=== PATIENT | male | born 1970 | race Caucasian/White ===

== ENCOUNTER 2021-04-08 13:39 | Inpatient (IN) | payer BC ==
--- OUTSIDE RECORDS SUMMARY | 2021-04-08 13:42 | XMS REPORT | Continuity of Care Document ---
:1970 Author Organization [facility] t Address [address] [place] [address] Care Team Providers Name Role Phone Unavailable Unavailable Unavailable Problems This patient has no known problems. Allergies, Adverse Reactions, Alerts This patient has no known allergies or adverse reactions. Medications Ordered Filled Start Stop Current Ordering Indication Dosage Frequency Signature Comments Components Source Medication Medication Date Date Medication? Clinician (SIG) Name Name Fluticasone Fluticasone 2019- Yes Jluis [address] [facility] Propionate Propionate 1-20 [place] each Sasha kes - 00:00: [facility]ril [facility] Lisinopril Lisinopril Yes Jluis [address] [facility] Lyrica Lyrica Yes Jluis [address] [facility] [place] [facility] Albuterol Albuterol Yes Jluis [address] [facility] Sulfate HFA Sulfate HFA [place] needed [facility] Singulair Singulair Yes Jluis [address] [facility] [place] in the [facility] Hingham Hingham Yes Jluis [address] [facility] [place] as needed [facility] Omeprazole Omeprazole Yes Jluis TAKE [address] [facility] [place] CAPSULE BY [facility] Dymista Dymista Yes Jluis INHALE [address] [facility] [place] PUFF IN [facility] NOSTRIL l TWICE Outpati DAILY ent Clinics Montelukast Montelukast Yes Jluis TAKE [address] [facility] Sodium Sodium [place] TABLET BY [facility] EVERY l EVENING Outpati ent Clinics Dymista Dymista Yes Jluis [address] [facility] [place] each [facility] Prilosec Prilosec Yes Jluis [address] [facility] [place] [facility] Soma Soma 2019- No Jluis [address] [facility] 03-15 [place] as needed [facility] Immunizations Ordered Filled Immunization Date Status Comments Sourc e Immunization Name Name Aleah Bullard 2019-04-[address] [facility] PNEUMAVAX 23 PNEUMAVAX 23 2018-08-[address] [facility] 00:[facility]00 [facility] Procedures This patient has no known procedures. Encounters Start End Encounter Admission Attending Care Care Encounter Source Date/Time Date/Time Type Type Clinicians Facility Department ID 2021-03-07 2021-03-07 Outpatient [facility] [id number] [facility] 2021-02-28 2021-02-28 [facility] [id number] 2021-02-14 2021-02-14 [id number] 2021-02-05 2021-02-05 [facility] [id number] [facility] 2021-01-31 2021-01-31 [facility] [id number] 2021-01-31 2021-01-31 [facility] [id number] [facility] 2020-12-06 2020-12-06 [facility] [id number] [facility] 2020-10-31 2020-10-31 [facility] [id number] [facility] 2020-10-22 2020-10-22 [facility] [id number] [facility] 2020-10-15 2020-10-15 [facility] [id number] [facility] 2020-10-08 2020-10-08 [facility] [id number] [facility] 2020-10-01 2020-10-01 [facility] [id number] [facility] 2020-09-10 2020-09-10 [facility] [id number] [facility] 2020-09-03 2020-09-03 [facility] [id number] [facility] 2020-08-27 2020-08-27 [facility] [id number] [facility] 2020-08-20 2020-08-20 Out[facility] [id number] [facility] 2020-08-13 2020-08-13 Out[facility] [id number] [facility] 2020-08-06 2020-08-06 [facility] [id number] [facility] 2020-08-01 2020-08-01 [facility] [id number] [facility] 2020-07-23 2020-07-23 Out[facility] [id number] [facility] 2020-07-15 2020-07-15 [facility] [id number] [facility] 2020-07-10 2020-07-10 Out[facility] [id number] [facility] 2020-07-04 2020-07-04 Out[facility] [id number] [facility] 2020-06-25 2020-06-25 [facility] [id number] [facility] 2020-06-18 2020-06-18 Out[facility] [id number] [facility] 2020-06-10 2020-06-10 [facility] [id number] [facility] 2020-06-04 2020-06-04 [facility] [id number] [facility] 2020-05-28 2020-05-28 [facility] [id number] [facility] 2020-05-17 2020-05-17 [facility] [id number] [facility] 2020-05-14 2020-05-14 Out[facility] [id number] [facility] 2020-05-06 2020-05-06 [facility] [id number] [facility] 2020-04-30 2020-04-30 [facility] [id number] [facility] 2020-04-23 2020-04-23 [facility] [id number] [facility] 2020-04-09 2020-04-09 [facility] [id number] [facility] 16:10:00 16:10:00 [place] Authorly s - Drive [facility] Medicine l Medicine Outpati ent Clinics 2020-04-05 2020-04-05 [facility] [id number] [facility] 08[facility]15:00 08:15:00 [place] [email or web address] s - Drive [facility] Medicine Medicine Outpati ent Clinics 2020-04-01 2020-04-01 [facility] [id number] [facility] 09:30:00 09:30:00 [place] Authorly s - Drive [facility] Medicine Outpati ent Clinics 2020-03-29 2020-03-29 [facility] [id number] [facility] 09:00:00 09:00:00 [place] [email or web address] s - Drive [facility] Medicine l Medicine Outpati ent Clinics 2020-03-18 2020-03-18 [facility] [id number] [facility] 09:30:00 09:30:00 [place] [email or web address] s - Drive [facility] Out[facility] Clinics 2020-03-15 2020-03-15 [facility] [id number] 09:45:00 09:45:00 [place] Authorly s - Drive [facility] Medicine l Medicine Outpati ent Clinics 2020-03-04 2020-03-04 [facility] [id number] [facility] 10:00:00 10:00:00 [place] [email or web address] [facility] Medicine l Medicine Outpati ent Clinics 2020-03-01 2020-03-01 [facility] [id number] [facility] 09:00:00 09:00:00 t [email or web address] [facility] Medicine Outpat[facility] ent Clinics 2020-02-19 2020-02-19 [facility] [id number] [facility] 16:00:00 16:00:00 t [email or web address] [facility] Medicine Outpati ent Clinics 2020-02-12 2020-02-12 [facility] [id number] [facility] 16:30:00 16:30:00 t [email or web address] [facility] Medicine Outpati ent Clinics 2020-02-09 2020-02-09 [facility] [id number] [facility] 15[facility]52:00 15:52:00 t [email or web address] [facility] Medicine Outpati ent Clinics 2020-02-09 2020-02-09 [facility] [id number] [facility] 10:30:00 10:30:00 t [email or web address] [facility] Medicine Outpati ent Clinics 2020-02-09 2020-02-09 [facility] [id number] [facility] 10:00:00 10:00:00 t [email or web address] [facility] Medicine Outpati ent Clinics 2020-02-05 2020-02-05 [facility] [id number] [facility] 16:00:00 16:00:00 t [email or web address] [facility] Medicine Medicine Outpati ent Clinics 2020-01-30 2020-01-30 [facility] [id number] [facility] 16:00:00 16:00:00 t [email or web address] [facility] Medicine Outpati ent Clinics 2020-01-22 2020-01-22 [facility] [id number] [facility] 10[facility]40:00 10:40:00 t [email or web address] [facility] Medicine Outpati ent Clinics 2020-01-18 2020-01-18 [facility] [id number] [facility] 11:15:00 11:15:00 [place] [email or web address] [facility] Medicine l Medicine Outpati ent Clinics 2020-01-11 2020-01-11 [facility] [id number] [facility] 10:00:00 10:00:00 [place] [email or web address] [facility] Medicine l Medicine Outpati ent Clinics 2019-12-22 2019-12-22 [facility] [id number] [facility] 08:45:00 08:45:00 [place] [email or web address] [facility] Medicine l Medicine Outpati ent Clinics 2019-12-15 2019-12-15 [facility] [id number] [facility] 08:30:00 08:30:00 [place] [email or web address] [facility] Medicine Outpati ent Clinics 2019-10-26 2019-10-26 [facility] [id number] [facility] 11:00:00 11:00:00 [place] [email or web address] [facility] Medicine Outpati ent Clinics 2019-10-20 2019-10-20 [facility] [id number] [facility] 11:42:00 11:42:00 [place] [email or web address] [facility] Medicine l Medicine Outpati ent Clinics 2019-10-20 2019-10-20 [facility] [id number] [facility] 11:00:00 11:00:00 t [email or web address] [facility] Medicine l Medicine Outpati ent Clinics 2019-10-13 2019-10-13 [facility] [id number] [facility] 11:00:00 11:00:00 [place] [email or web address] [facility] Medicine l Medicine Outpati ent Clinics 2019-10-04 2019-10-04 [facility] [id number] [facility] 10:30:00 10:30:00 [place] [email or web address] [facility] Medicine l Medicine Outpati ent Clinics 2019-09-28 2019-09-28 [facility] [id number] [facility] 10:30:00 10:30:00 [place] [email or web address] [facility] Medicine l Medicine Outpati ent Clinics 2019-09-21 2019-09-21 [facility] [id number] [facility] 10:30:00 10:30:00 [place] Authorly s - [employer] [facility] Family Medicine l Medicine Outpati ent Clinics 2019-09-15 2019-09-15 [facility] [id number] [facility] 10:30:00 10:30:00 [place] Authorly s - Drive [facility] Medicine l Medicine Outpati ent Clinics 2019-09-07 2019-09-07 [facility] [id number] [facility] 10:00:00 10:00:00 [place] [email or web address] [facility] Family Medicine l Medicine Outpati ent Clinics 2019-09-01 2019-09-01 [facility] [id number] [facility] 10:30:00 10:30:00 [place] [email or web address] [facility] Medicine l Medicine Outpati ent Clinics 2019-08-23 2019-08-23 [facility] [id number] [facility] 13:30:00 13:30:00 [place] [email or web address] [facility] Medicine l Medicine Outpati ent Clinics 2019-08-16 2019-08-16 [facility] [id number] [facility] 13:00:00 13:00:00 [place] [email or web address] [facility] Medicine l Medicine Outpati ent Clinics 2019-08-09 2019-08-09 [facility] [id number] [facility] 11:00:00 11:00:00 t [email or web address] [facility] Medicine l Medicine Outpati ent Clinics 2019-08-04 2019-08-04 [facility] [id number] 10:30:00 10:30:00 [place] [email or web address] [facility] Medicine l Medicine Outpati ent Clinics 2019-08-01 2019-08-01 [facility] [id number] [facility] 10:30:00 10:30:00 [place] Authorly s - Drive [facility] Medicine l Medicine Outpati ent Clinics 2019-07-24 2019-07-24 [facility] [id number] [facility] 10:45:00 10:45:00 [place] Author[place] - [employer] [facility] Medicine l Medicine Outpati ent Clinics 2019-07-19 2019-07-19 [facility] [id number] 08:30:00 08:30:[address] [place] [address] [address] [place] [address] - Drive [facility] Medicine l Medicine Outpati ent Clinics 2019-07-11 2019-07-11 [facility] [id number] [facility] 11:30:00 11:30:00 [place] [employer] Luke s - Drive [facility] Medicine l Medicine Outpati ent Clinics 2019-07-07 2019-07-07 [facility] [id number] [facility] 10:45:00 10:45:00 [place] [employer] Luke s - Drive [facility] Medicine l Medicine Outpati ent Clinics 2019-07-03 2019-07-03 [facility] [id number] [facility] 10:30:00 10:30:00 [place] [employer] s - Drive [facility] Medicine l Medicine Outpati ent Clinics 2019-06-27 2019-06-27 [facility] [id number] [facility] 13:30:00 13:30:00 [place] [employer] Luke s - Drive [facility] Medicine l Medicine Outpati ent Clinics 2019-06-20 2019-06-20 [facility] [id number] 15:36:00 15:36:00 [place] vufind s - Drive [facility] Medicine l Medicine Outpati ent Clinics 2019-06-20 2019-06-20 [facility] [id number] [facility] 09:30:00 09:30:00 [place] [email or web address] s - Drive [facility] Medicine l Medicine Outpati ent Clinics 2019-06-16 2019-06-16 [facility] [id number] [facility] 10:00:00 10:00:00 [place] [employer] Luke s - Drive [facility] Medicine l Medicine Outpati ent Clinics 2019-06-05 2019-06-05 [facility] [id number] [facility] 10:30:00 10:30:00 [place] [email or web address] s - Drive [facility] Medicine l Medicine Outpati ent Clinics 2019-05-26 2019-05-26 [facility] [id number] [facility] 10:30:00 10:30:00 [place] vufind s - Drive [facility] Medicine l Medicine Outpati ent Clinics 2019-05-19 2019-05-19 [facility] [id number] [facility] 08:00:00 08:00:00 [place] [email or web address] s - Drive [facility] Medicine l Medicine Outpati ent Clinics 2019-05-12 2019-05-12 [facility] [id number] [facility] 10:30:00 10:30:00 [place] Authorly s - Drive [facility] Medicine l Medicine Outpati ent Clinics 2019-05-05 2019-05-05 [facility] [id number] [facility] 11:00:00 11:00:00 [place] Author[place] s - Drive [facility] Medicine l Medicine Outpati ent Clinics 2019-04-28 2019-04-28 [facility] [id number] [facility] 09:00:00 09:00:00 [place] Author[place] - [employer] [facility] Medicine Medicine Outpati ent Clinics 2019-04-20 2019-04-20 [facility] [id number] [facility] 10:45:00 10:45:00 [place] Author[place] [employer] - [employer] [facility] Medicine l Medicine Outpati ent Clinics 2019-04-18 2019-04-18 [facility] [id number] [facility] 10:30:00 10:30:00 [place] Author[place] [employer] - [employer] [facility] Medicine l Medicine Outpati ent Clinics 2019-04-14 2019-04-14 [facility] [id number] [facility] 11:00:00 11:00:00 [place] Author[place] s - Drive [facility] Medicine l Medicine Outpati ent Clinics 2019-03-24 2019-03-24 [facility] [id number] [facility] 10:30:00 10:30:00 [place] Author[place] s - Drive [facility] Medicine l Medicine Outpati ent Clinics 2019-03-17 2019-03-17 [facility] [id number] [facility] 11:00:00 11:00:00 [place] vufind s - Drive [facility] Medicine l Medicine Outpati ent Clinics 2019-03-10 2019-03-10 [facility] [id number] [facility] 11:00:00 11:00:[address] [place] [address] Luke s - Drive [facility] Family Medicine l Medicine Outpati ent Clinics 2019-03-03 2019-03-03 [facility] [id number] [facility] 09:00:00 09:00:[address] [place] [address] Luke [address] - Drive [facility] Medicine l Medicine Outpati ent Clinics 2019-02-24 2019-02-24 [facility] [id number] [facility] 08:30:00 08:30:[address] [place] [address] Luke [address] - Drive [facility] Medicine l Medicine Outpati ent Clinics 2019-02-21 2019-02-21 [facility] [id number] [facility] 11:00:00 11:00:[address] [place] [address] Luke s - Drive [facility] Medicine l Medicine Outpati ent Clinics 2019-02-17 2019-02-17 [facility] [id number] [facility] 11:00:00 11:00:[address] [place] Luke [address] - Drive [facility] Medicine l Medicine Outpati ent Clinics 2019-02-08 2019-02-08 [facility] [id number] [facility] 11:00:00 11:00:[address] [place] [address] Luke [address] - Drive [facility] Medicine l Medicine Outpati ent Clinics 2019-01-31 2019-01-31 [facility] [id number] [facility] 10:30:00 10:30:[address] [place] [address] Luke [address] - Drive [facility] Medicine l Medicine Outpati ent Clinics 2019-01-27 2019-01-27 [facility] [id number] [facility] 09:00:00 09:00:[address] [place] [address] Luke [address] - Drive [facility] Medicine l Medicine Outpati ent Clinics 2019-01-18 2019-01-18 [facility] [id number] [facility] 11:15:00 11:15:[address] [place] [address] Luke [address] - Drive [facility] Medicine l Medicine Outpati ent Clinics 2019-01-13 2019-01-13 [facility] [id number] [facility] 11:00:00 11:00:[address] [place] [address] Luke [address] - Drive [facility] Medicine l Medicine Outpati ent Clinics 2018-12-13 2018-12-13 [facility] [id number] [facility] 10:30:00 10:30:[address] [place] [address] Luke s - Drive [facility] Family Medicine l Medicine Outpati ent Clinics 2018-12-06 2018-12-06 [facility] [id number] [facility] 10:00:00 10:00:[address] [place] Luke s - Drive [facility] Family Medicine l Medicine Outpati ent Clinics 2018-11-29 2018-11-29 [facility] [id number] [facility] 09:45:00 09:45:[address] Luke s - Drive [facility] Family Medicine l Medicine Outpati ent Clinics 2018-10-31 2018-10-31 [facility] [id number] [facility] 15:31:00 15:31:00 [place] [id number] s - Drive [facility] Family Medicine l Medicine Outpati ent Clinics 2018-10-31 2018-10-31 [facility] [id number] [facility] 09:30:00 09:30:00 [place] [employer] Luke s - Drive [facility] Family Medicine l Medicine Outpati ent Clinics 2018-10-03 2018-10-03 [facility] [id number] [facility] 10:45:00 10:45:00 [place] [employer] Luke s - Drive [facility] Medicine l Medicine Outpati ent Clinics 2018-09-05 2018-09-05 [facility] [id number] [facility] 09:30:00 09:30:00 [place] [employer] Luke s - Drive [facility] Medicine l Medicine Outpati ent Clinics 2018-08-09 2018-08-09 [facility] [id number] [facility] 12:05:00 12:05:00 [place] [employer] Luke s - Drive [facility] Family Medicine l Medicine Outpati ent Clinics 2018-08-08 2018-08-08 [facility] [id number] [facility] 11:30:00 11:30:00 [place] [id number] s - Drive [facility] Medicine l Medicine Outpati ent Clinics 2018-07-11 2018-07-11 [facility] [id number] [facility] 13:00:00 13:00:00 [place] [employer] Luke s - Drive [facility] Out[facility] Clinics 2018-04-26 2018-04-26 [facility] [id number] [facility] 09:45:00 09:45:00 [place] [employer]ufind s - Drive [facility] Medicine Outpati ent Clinics 2018-03-21 2018-03-21 [facility] [id number] [facility] 11:00:00 11:00:00 [place] Author[employer] s - Drive [facility] Medicine Outpati ent Clinics 2018-02-23 2018-02-23 [facility] [id number] [facility] 15:15:00 15:15:00 [place] Author[employer] s - Drive [facility] Medicine Outpati ent Clinics 2018-01-24 2018-01-24 [facility] [id number] [facility] 14:45:00 14:45:00 t [employer] - Drive [facility] Medicine Outpati ent Clinics 2017-12-29 2017-12-29 [facility] [id number] [facility] 14:45:00 14:45:00 [place] Author[employer] s - Drive [facility] Medicine Outpati ent Clinics 2017-11-29 2017-11-29 [facility] [id number] [facility] 14:30:00 14:30:00 t [employer] - Drive [facility] Medicine Outpati ent Clinics Results This patient has no known results.
[2021-04-08] MEDS ORDERED: NA CHLORIDE 0.9% 2,000 ML ONE ×2 (15:10→20:53)
[2021-04-08 15:19] LABS: Absolute Lymphocytes (CBC) 3.2 K/uL (0.7-4.9); Basophils % 0.7 % (0-1.3); Hematocrit 42.9 % (39.6-49.0); MPV 8.7 fL (7.6-11.3); RBC Red Blood Cell Count 4.84 M/uL (4.33-5.43)
[2021-04-08 15:26] LABS: Protime INR 1.01
--- NOTE | 2021-04-08 15:44 | RAD REPORT ---
EXAM DESCRIPTION: RAD - Chest Single View - 04/08/2021 3:36 pm CLINICAL HISTORY: COUGH COMPARISON: None TECHNIQUE: AP portable chest image was obtained 04/08/2021 3:36 pm . FINDINGS: No peripheral mass or consolidation. Minimal prominence of the interstitial pattern is bel ieved to be baseline. No johnathan abnormality seen. Heart and vasculature are normal. No measurable pleur al effusion and no pneumothorax. No acute bony abnormality seen. No acute aortic findings suspected. IMPRESSION: No acute cardiopulmonary process.
[2021-04-08 15:46] LABS: ALT/SGPT 39 U/L (12-78); AST/SGOT 43 U/L (15-37); Albumin 4.2 g/dL (3.4-5.0); Alkaline Phosphatase 112 U/L (45-117); BUN Blood Urea Nitrogen 55 mg/dL (7-18); Bicarbonate 22 mmol/L (21-32); Bilirubin Direct 0.1 mg/dL (0-0.2); Bilirubin Total 0.4 mg/dL (0.2-1.0); Glucose Level 95 mg/dL (74-106); Lipase 208 U/L (73-393); Magnesium 2.5 mg/dL (1.8-2.4); NT PRO-BNP 27 pg/mL (<125); Potassium 3.9 mmol/L (3.5-5.1); Protein, Total 8.3 g/dL (6.4-8.2); Sodium Level 136 mmol/L (136-145); Troponin (Emerg Dept Use Only) < 0.02 ng/mL (0.0-0.045)
--- NOTE | 2021-04-08 17:10 | RAD REPORT ---
EXAM DESCRIPTION: CT - Stone Protocol - 04/08/2021 4:57 pm CLINICAL HISTORY: FLANK PAINhistory of COVID infection 3 weeks earlier COMPARISON: CT ABDOMEN PELVIS WO CONTRAST dated 04/01/2012 TECHNIQUE: Axial 3 mm thick images were obtained without oral or IV contrast. The [id number] span s the entirety of the system including uppermost abdomen and lung bases. All CT scans are performed using dose optimization technique as appropriate and may include automated exposure control or mA/KV adjustment according to patient size. FINDINGS: No acute findings lung parenchyma any each lung base. No pericardial thickening or effusio n. No hydronephrosis is present and no obstructing ureteral calculi. No nonobstructing calculi seen. No suspicious renal masses. Isodense masses and pyelonephritis are not excluded on a stone protocol CT s can. No significant adrenal finding. No urinary bladder suspicious finding. Imaged portions of the liver, spleen and pancreas show no suspicious findings on non-contrast imaging . Small cyst medial lower right lobe unchanged from 2012. Well filled gallbladder shows no wall thick ening or edema. No biliary tree dilatation. No suspicious bowel findings. Appendix is normal. Moderate stool volume fills but does not distend th e colon. Sigmoid diverticulosis present without diverticulitis. No hernia, mass or bulky lymphadenopathy noted. No free air, free fluid or inflammatory stranding. No significant bony abnormality. IMPRESSION: Negative CT stone protocol study. Isodense masses and pyelonephritis are not excluded on stone protocol technique. Remainder the study, as detailed above, shows no acute or emergent finding
--- NOTE | 2021-04-08 17:27 | ER ---
Nurse's Notes [facility] Name: Eldon Carrillo Age: 51 yrs Sex: Male : 1970 Arrival Date: 04/08/2021 Time: 13:42 Bed 28 Private MD: Jeffrey Senior E Diagnosis: Hypotension, unspecified;Acute kidney failure, unspecified;Essential (primary) hypertension-History of;Coronavirus infection, unspecified Presentation: 04/08 14:04 Chief complaint: Patient states: LOW BP, dizzy off/on since Wednesday. BP 78/59 at home. ll1 Taking medications as prescribed. Had covid 3 weeks ago, but feels better overall. Coughs up phlegm still. Coronavirus screen: Vaccine status: Patient reports receiving the 1st dose of the Covid vaccine. Client denies travel out of the [place] in the last 14 days. congestion, cough unrelated to allergies, fatigue, headache, Client presents with at least one sign or symptom that may indicate coronavirus-19. Standard/surgical mask placed on the client. Ebola Screen: Patient denies travel to an Ebola-affected area in the 21 days before illness onset. Initial Sepsis Screen: Does the patient meet any 2 criteria? HR > 90 bpm. No. Patient's initial sepsis screen is negative. Does the patient have a suspected source of infection? No. Patient's initial sepsis screen is negative. Risk Assessment: Do you want to hurt yourself or someone else? Patient reports no desire to harm self or others. Onset of symptoms was April 06, 2021. 14:04 Method Of Arrival: Wheelchair ll1 14:04 Acuity: KASANDRA 2 ll1 Triage Assessment: 15:34 General: Appears in no apparent distress. uncomfortable, Behavior is calm, cooperative. kh1 Pain: Complains of pain in genersalized pain Pain does not radiate. Pain currently is 8 out of 10 on a pain scale. Quality of pain is described as aching, crampy. EENT: No deficits noted. Neuro: No deficits noted. Historical: - Allergies: 14:07 No Known Allergies; ll1 - PMHx: 14:07 Hypertensive disorder; back problems; ll1 - PSHx: 14:07 hernia repair; ll1 - Immunization history:: Client reports receiving the Viral \T\ Viral single-dose vaccine. Flu vaccine is not up to date. - Social history:: Smoking status: Patient denies any tobacco usage or history of. - Family history:: No immediate family members are acutely ill. - Code Status:: Full code. - Hospitalizations: : No recent hospitalization is reported. Screenin:53 Abuse screen: Denies threats or abuse. Nutritional screening: No deficits noted. kh1 Tuberculosis screening: No symptoms or risk factors identified. Fall Risk Gait- Weak (10 pts.). Assessment: 15:53 Neuro: No deficits noted. Cardiovascular: Reports chest pain, lightheadedness, kh1 shortness of breath. Respiratory: Reports shortness of breath. GI: No deficits noted. : No deficits noted. 16:08 Reassessment: Pt daughter Meghann called and was updated on patient status. . kg 17:00 Reassessment: Patient appears in no apparent distress at this time. No changes from [facility] previously documented assessment. Patient and/or family updated on plan of care and expected duration. Pain level reassessed. Patient is alert, oriented x 3, equal unlabored respirations, skin warm/dry/pink. 18:24 Reassessment: Patient appears in no apparent distress at this time. No changes from [facility] previously documented assessment. Patient and/or family updated on plan of care and expected duration. Pain level reassessed. Patient states feeling better. Vital Signs: 14:04 BP 75 / 47; Pulse 123; Resp 17; Temp 97.6; Pulse Ox 98% ; Weight 107.95 kg; Height 5 ll1 ft. 11 in. (180.34 cm); Pain 8/10; 15:00 BP 74 / 54; Pulse 106; Resp 18; Temp 97.6; Pulse Ox 96% ; kh1 17:00 BP 98 / 59; Pulse 100; Resp 15; Temp 97.9; Pulse Ox 100% on R/A; kh1 18:28 BP 128 / 89; Pulse 100; Resp 16; Pulse Ox 100% on R/A; kh1 14:04 Body Mass Index 33.19 (107.95 kg, 180.34 cm) ll1 Vitals: 15:53 Cardiac Rhythm Assessment Sinus tach. kh1 ED Course: 13:42 Patient arrived in ED. am2 13:42 Jeffrey Senior MD is Private Physician. am2 14:04 Arm band placed on. ll1 14:06 Triage completed. ll1 14:18 Scarlett Valle is Primary Nurse. kh1 14:44 Shaq Winn MD is Attending Physician. evon 15:12 Lactate Sent. kh1 15:12 Blood Culture Adult (2) Sent. kh1 15:13 Lipase Sent. kh1 15:13 XRAY Chest (1 view) Sent. kh1 15:13 Basic Metabolic Panel Sent. kh1 15:13 CBC with Diff Sent. kh1 15:14 LFT's Sent. kh1 15:14 Magnesium Sent. kh1 15:14 NT PRO-BNP Sent. kh1 15:14 PT-INR Sent. kh1 15:14 Troponin (emerg Dept Use Only) Sent. kh1 15:36 XRAY Chest (1 view) In Process Unspecified. EDMS 15:53 Patient has correct armband on for positive identification. Bed in low position. Call kh1 light in reach. Side rails up X 1. 15:53 No provider procedures requiring assistance completed. Inserted saline lock: 20 gauge kh1 in right antecubital area, using aseptic technique. Blood collected. 15:56 Inserted saline lock: 20 gauge in left antecubital area, using aseptic technique. kh1 15:58 Blood Culture Adult (2) Sent. kh1 16:57 CT Stone Protocol In Process Unspecified. EDMS 17:23 Jay Newman MD is Hospitalizing Provider. [facility] 04/09 19:13 IV discontinued, intact, bleeding controlled, No redness/swelling at site. aj2 Administered Medications: 04/08 14:44 CANCELLED (Duplicate Order): NS 0.9% (20 ml/kg) 20 ml/kg IV at 1 bolus once evon 15:12 Drug: NS 0.9% 1000 ml Route: IV; Rate: 1 bolus; Site: right antecubital; kh1 Outcome: 17:26 Decision to Hospitalize by Provider. [facility] 04/09 19:13 Discharged to home ambulatory. aj2 Condition: stable Discharge instructions given to patient, Instructed on discharge instructions, follow up and referral plans. Demonstrated understanding of instructions, follow-up care. 19:14 Patient left the ED. aj2 Signatures: Dispatcher [employer] EDAZ Shaq Winn MD MD cha Moreno, Amanda am2 Marlene Aguilera RN RN 1 Lesvia Martin RN RN Scarlett Young kh1 Gavino Ennis2 Corrections: (The following items were deleted from the chart) 04/08 16:33 15:58 CORONAVIRUS+ drawn and sent. kh1 EDAZ
--- NOTE | 2021-04-08 17:27 | EDPHYS ---
Physician Documentation [facility] Name: Eldon Carrillo Age: 51 yrs Sex: Male : 1970 Arrival Date: 04/08/2021 Time: 13:42 Bed 28 Private MD: Jeffrey Senior E ED Physician Shaq Winn HPI: 04/08 17:17 This 51 yrs old Male presents to ER via Wheelchair with complaints of Blood evon Pressure Problem - low, Dizziness. 17:17 The patient presents with dizziness, feeling faint, generalized weakness. Onset: The evon symptoms/episode began/occurred 4 day(s) ago. Context: occurred while the patient was. Modifying factors: The symptoms are alleviated by nothing, the symptoms are aggravated by standing up, changing position. Associated signs and symptoms: Pertinent positives:. Severity of symptoms: At their worst the symptoms were moderate in the emergency department the symptoms are unchanged. Patient's baseline: Neuro: alert and fully oriented. The patient has not experienced similar symptoms in the past. Historical: - Allergies: 14:07 No Known Allergies; ll1 - PMHx: 14:07 Hypertensive disorder; back problems; ll1 - PSHx: 14:07 hernia repair; ll1 - Immunization history:: Client reports receiving the Viral \T\ Viral single-dose vaccine. Flu vaccine is not up to date. - Social history:: Smoking status: Patient denies any tobacco usage or history of. - Family history:: No immediate family members are acutely ill. - Code Status:: Full code. - Hospitalizations: : No recent hospitalization is reported. ROS: 17:17 Constitutional: Negative for fever, chills, and weight loss, Eyes: Negative for injury, evon pain, redness, and discharge, ENT: Negative for injury, pain, and discharge, Neck: Negative for injury, pain, and swelling, Cardiovascular: Negative for chest pain, palpitations, and edema, Respiratory: Negative for shortness of breath, cough, wheezing, and pleuritic chest pain, Abdomen/GI: Negative for abdominal pain, nausea, vomiting, diarrhea, and constipation, Back: Negative for injury and pain, : Negative for injury, bleeding, discharge, and swelling, MS/Extremity: Negative for injury and deformity, Skin: Negative for injury, rash, and discoloration, Neuro: Negative for headache, weakness, numbness, tingling, and seizure, Psych: Negative for depression, anxiety, suicide ideation, homicidal ideation, and hallucinations, Allergy/Immunology: Negative for hives, rash, and allergies, Endocrine: Negative for neck swelling, polydipsia, polyuria, polyphagia, and marked weight changes. Exam: 17:17 Constitutional: This is a well developed, well nourished patient who is awake, alert, evon and in no acute distress. Head/Face: Normocephalic, atraumatic. Eyes: Pupils equal round and reactive to light, extra-ocular motions intact. Lids and lashes normal. Conjunctiva and sclera are non-icteric and not injected. Cornea within normal limits. Periorbital areas with no swelling, redness, or edema. ENT: Nares patent. No nasal discharge, no septal abnormalities noted. Tympanic membranes are normal and external auditory canals are clear. Oropharynx with no redness, swelling, or masses, exudates, or evidence of obstruction, uvula midline. Mucous membranes moist. Neck: Trachea midline, no thyromegaly or masses palpated, and no cervical lymphadenopathy. Supple, full range of motion without nuchal rigidity, or vertebral point tenderness. No Meningismus. Chest/axilla: Normal chest wall appearance and motion. Nontender with no deformity. No lesions are appreciated. Cardiovascular: Regular rate and rhythm with a normal S1 and S2. No gallops, murmurs, or rubs. Normal PMI, no JVD. No pulse deficits. Respiratory: Lungs have equal breath sounds bilaterally, clear to auscultation and percussion. No rales, rhonchi or wheezes noted. No increased work of breathing, no retractions or nasal flaring. Abdomen/GI: Soft, non-tender, with normal bowel sounds. No distension or tympany. No guarding or rebound. No evidence of tenderness throughout. Back: No spinal tenderness. No costovertebral tenderness. Full range of motion. Skin: Warm, dry with normal turgor. Normal color with no rashes, no lesions, and no evidence of cellulitis. MS/ Extremity: Pulses equal, no cyanosis. Neurovascular intact. Full, normal range of motion. Neuro: Awake and alert, GCS 15, oriented to person, place, time, and situation. Cranial nerves II-XII grossly intact. Motor strength 5/5 in all extremities. Sensory grossly intact. Cerebellar exam normal. Normal gait. Psych: Awake, alert, with orientation to person, place and time. Behavior, mood, and affect are within normal limits. 17:17 Musculoskeletal/extremity: DVT Exam: No signs of deep vein thrombosis. no pain, no swelling, no tenderness, negative Homans' sign noted on exam, no appreciated bluish discoloration, no erythema, no increased warmth. Vital Signs: 14:04 BP 75 / 47; Pulse 123; Resp 17; Temp 97.6; Pulse Ox 98% ; Weight 107.95 kg; Height 5 ll1 ft. 11 in. (180.34 cm); Pain 8/10; 15:00 BP 74 / 54; Pulse 106; Resp 18; Temp 97.6; Pulse Ox 96% ; kh1 17:00 BP 98 / 59; Pulse 100; Resp 15; Temp 97.9; Pulse Ox 100% on R/A; kh1 18:28 BP 128 / 89; Pulse 100; Resp 16; Pulse Ox 100% on R/A; kh1 14:04 Body Mass Index 33.19 (107.95 kg, 180.34 cm) ll1 MDM: 14:44 Patient medically screened. evon 17:20 Differential diagnosis: generalized weakness, idiopathic dizziness. Data reviewed: [facility] vital signs, nurses notes, lab test result(s), EKG, radiologic studies, plain films. Data interpreted: surveyor geophysical prospecting: rate is 106 beats/min, rhythm is regular, Pulse oximetry: on room air is 96 %. Test interpretation: by ED physician or midlevel provider: ECG, plain radiologic studies. Counseling: I had a detailed discussion with the patient and/or guardian regarding: the historical points, exam findings, and any diagnostic results supporting the discharge/admit diagnosis, lab results, radiology results, the need for further work-up and treatment in the hospital. 04/08 14:37 Order name: Basic Metabolic Panel; Complete Time: 16: [facility] 04/08 14:37 Order name: CBC with Diff; Complete Time: 16: [facility] 04/08 14:37 Order name: LFT's; Complete Time: 16: [facility] 04/08 14:37 Order name: Magnesium; Complete Time: 16: [facility] 04/08 14:37 Order name: NT PRO-BNP; Complete Time: 16: [facility] 04/08 14:37 Order name: PT-INR; Complete Time: 16:06 [facility] 04/08 14:37 Order name: Troponin (emerg Dept Use Only); Complete Time: 16:06 [facility] 04/08 14:37 Order name: Lipase; Complete Time: 16:06 [facility] 04/08 14:37 Order name: Urine Culture [facility] 04/08 14:37 Order name: Blood Culture Adult (2) [facility] 04/08 14:37 Order name: Lactate; Complete Time: 16:06 [facility] 04/08 16:06 Order name: Uric Acid; Complete Time: 17:39 [facility] 04/08 17:34 Order name: SARS-COV-2 RT PCR; Complete Time: 17:39 [facility] 04/08 14:37 Order name: XRAY Chest (1 view); Complete Time: 16:06 [facility] 04/08 16:06 Order name: CT Stone Protocol; Complete Time: 17:39 [facility] 04/08 17:39 Order name: CK; Complete Time: 22:39 [facility] 04/08 21:10 Order name: US; Complete Time: 22:39 [facility] 04/08 23:18 Order name: Urinalysis [facility] 04/08 23:23 Order name: Ur Protein [facility] 04/08 23:45 Order name: Urine Microscopic Only [facility] 04/09 02:43 Order name: CBC with Automated Diff [facility] 04/09 02:58 Order name: Comprehensive Metabolic Panel [facility] 04/09 02:58 Order name: Phosphorus [facility] 04/09 02:58 Order name: Creatine Phosphokinase [facility] 04/09 02:58 Order name: Magnesium [facility] 04/09 12:26 Order name: Basic Metabolic Panel [facility] 04/09 12:28 Order name: CBC with Automated Diff [facility] 04/08 14:37 Order name: EKG; Complete Time: 14:38 [facility] 04/08 14:37 Order name: Cardiac monitoring; Complete Time: 15:13 [facility] 04/08 14:37 Order name: EKG - Nurse/Tech [facility] 04/08 14:37 Order name: IV Saline Lock; Complete Time: 15:13 [facility] 04/08 14:37 Order name: Labs collected and sent; Complete Time: 15:13 [facility] 04/08 14:37 Order name: O2 Per Protocol; Complete Time: 15:13 [facility] 04/08 14:37 Order name: O2 Sat Monitoring; Complete Time: 15:13 [facility] 04/08 14:37 Order name: Urine Dipstick-Ancillary (obtain specimen) [facility] 04/08 14:44 Order name: IV Saline Lock - Large Bore; Complete Time: 15:12 [facility] 04/08 16:06 Order name: Carranza [facility] 04/08 18:49 Order name: CONS Physician Consult EDMS Administered Medications: 14:44 CANCELLED (Duplicate Order): NS 0.9% (20 ml/kg) 20 ml/kg IV at 1 bolus once [facility] 15:12 Drug: NS 0.9% 1000 ml Route: IV; Rate: 1 bolus; Site: right antecubital; kh1 Disposition Summary: 04/08/21 17:26 Hospitalization Ordered Hospitalization Status: Inpatient Admission evon Provider: Jay Newman cha Condition: Fair evon Problem: new evon Symptoms: have improved evon Bed/Room Type: Standard evon Location: [facility] ER HOLD(04/08/21 18:54) bd Room Assignment: ERHOLD-(04/08/21 18:54) bd Diagnosis - Hypotension, unspecified evon - Acute kidney failure, unspecified evon - Essential (primary) hypertension - History of evon - Coronavirus infection, unspecified evon Forms: - Medication Reconciliation Form evon - SBAR form evon Signatures: Dispatcher [employer] EDMS Dior Hua Corey, MD MD cha Roszak, Josh, PA PA [id number] Marlene Aguilera RN RN ll1 Scarlett Valle [facility] Corrections: (The following items were deleted from the chart) 14:44 14:37 NS 0.9% (20 ml/kg) 20 ml/kg IV at 1 bolus once ordered. [facility] 16:33 14:38 CORONAVIRUS+ ordered. EDMS EDMS 18:54 17:26 Telemetry/MedSurg (Inpatient) evon bd 18:54 17:26 evon bd
[2021-04-08] MEDS ORDERED: ONDANSETRON 4 MG/2 ML VIAL IV PRN (20:23)
[2021-04-08] MEDS ORDERED: NA CHLORIDE 0.9% 1,000 ML IV ONE (20:23)
[2021-04-08] MEDS ORDERED: ACETAMINOPHEN 500 MG TAB PO PRN (20:23)
[2021-04-08] MEDS: NA CHLORIDE 0.9% 1,000 ML IV SCH (20:23)
--- NOTE | 2021-04-08 20:59 | P.HP ---
Certification for Inpatient Patient admitted to: Inpatient With expected LOS: <2 Midnights Patient will require the following post-hospital care: None Practitioner: I am a practitioner with admitting privileges, knowledge of patient current condition, hospital course, and medical plan of care. Services: Services provided to patient in accordance with Admission requirements found in Title 42 Section 412.3 of the Code of Federal Regulations <Curtis Stratton - Last Filed: 04/08/21 21:03> Patient History Date of Service: 04/08/21 Primary Care Provider: Senior Reason for admission: rhabdomyolysis History of Present Illness: Mr. Carrillo is a 51 yo M with HTN who presents with 4 days of increasing dizziness and weakness. He has been working outside in the heat extensively and has had multiple episodes of dizziness with standing. Today he bent down to pick something up and fainted. Did not hit his head. Says he has been drinking about 3-4 bottles of water a day. On arrival, BP 75/47 and heart rate 123. WBC 13.5, BUN 55, Cr 6.13, GFR 10, uric acid 13.6, CK 1071. COVID+, no symptoms, initially covid positive at the beginning of last month. - Past Medical/Surgical History Diabetic: No -: HTN -: hernia repair - Family History Family History: Reviewed- Non-Contributory - Social History Smoking Status: Never smoker Alcohol use: No CD- Drugs: No Caffeine use: Yes Place of Residence: Home <Curtis Stratton - Last Filed: 04/08/21 21:03> Date of Service: 04/08/21 <Jay Newman - Last Filed: 04/14/21 02:50> Allergies No Known Allergies Allergy (Unverified 04/08/21 20:23) Review of Systems 10-point ROS is otherwise unremarkable General: Weakness, Malaise Cardiovascular: Light Headedness <Curtis Stratton - Last Filed: 04/08/21 21:03> Physical Examination - Physical Exam General: Alert, In no apparent distress HEENT: Atraumatic, PERRLA, Mucous membr. moist/pink, EOMI, Sclerae nonicteric Neck: Supple, 2+ carotid pulse no bruit, No LAD, Without JVD or thyroid abnormality Respiratory: Clear to auscultation bilaterally, Normal air movement Cardiovascular: Regular rate/rhythm, Normal S1 S2 Gastrointestinal: Normal bowel sounds, No tenderness Musculoskeletal: No tenderness Integumentary: No rashes Neurological: Normal speech, Normal strength at 5/5 x4 extr, Normal tone, Normal affect Lymphatics: No axilla or inguinal lymphadenopathy Urinary: Carranza catheter - Studies Laboratory Data (last 24 hrs) 04/08/21 15:00: Uric Acid 13.6 H 04/08/21 15:00: PT 11.6, INR 1.01 04/08/21 15:00: WBC 13.50 H, Hgb 14.3, Hct 42.9, Plt Count 229 04/08/21 15:00: Sodium 136, Potassium 3.9, BUN 55 H, Creatinine 6.13 H*, Glucose 95, Magnesium 2.5 H, Total Bilirubin 0.4, AST 43 H, ALT 39, Alkaline Phosphatase 112, Lipase 208 <Curtis Stratton - Last Filed: 04/08/21 21:03> - Studies Microbiology Data (last 24 hrs): 04/08/21 15:40 Blood - Blood Aerobic Blood Culture - Final No growth in 5 days. 04/08/21 15:40 Blood - Blood Anaerobic Blood Culture - Final No growth in 5 days. 04/08/21 15:00 Blood - Blood Aerobic Blood Culture - Final No growth in 5 days. 04/08/21 15:00 Blood - Blood Anaerobic Blood Culture - Final No growth in 5 days. <Jay Newman - Last Filed: 04/14/21 02:50> Assessment and Plan - Problems (Diagnosis) (1) Rhabdomyolysis Status: Acute Qualifiers: Rhabdomyolysis type: non-traumatic Qualified Code(s): M62.82 - Rhabdomyolysis (2) HTN (hypertension) Status: Chronic Qualifiers: Hypertension type: primary hypertension Qualified Code(s): I10 - Essential (primary) hypertension (3) Hypotension Status: Acute Qualifiers: Hypotension type: hypotension due to hypovolemia Qualified Code(s): I95.89 - Other hypotension; E86.1 - Hypovolemia - Plan bolus 1L of NS, continue NS at 100 cc/hr nephrology consulted renal ultrasound pending UA pending, urine protein:Cr pending repeat CK in the AM, repeat BMP in the AM monitor BP, hold lisinopril DVT ppx Discharge Plan: Home Plan to discharge in: 48 Hours - Advance Directives Does patient have a Living Will: No Does patient have a Durable POA for Healthcare: No - Code Status/Comfort Care Code Status Assessed: Yes (full code ) Critical Care: No Time Spent Managing Pts Care (In Minutes): 70 <Curtis Stratton - Last Filed: 04/08/21 21:03> Date of Service: 04/08/21 Subjective: Agree with plan of care as mentioned above Physical Examination: Vitals: Afebrile vital signs are stable Physical exam: Cardiovascular: Within normal limits. Lungs: Within normal limits Abdomen: Within normal limits Neuro: Awake, alert, oriented to person place and time Assessment: 1. Acute renal insufficiency Plan: 1. Continue with current plan of care <Jay Newman - Last Filed: 04/14/21 02:50>
--- NOTE | 2021-04-08 21:09 | RAD REPORT ---
EXAM DESCRIPTION: US - Renal Ultrasound-Complete - 04/08/2021 8:53 pm CLINICAL HISTORY: ARF COMPARISON: Stone Protocol dated 04/08/2021 FINDINGS: The right kidney measures 10.2 x 6.5 x 4.8 centimeter. The left kidney measures 12.9 x 6. 9 x 4.2 cm. Renal cortical thickness and echogenicity are normal. No hydronephrosis or suspicious amanda al mass. A 19 mm cyst is present upper pole right kidney. Bladder is mostly contracted limiting evaluation. IMPRESSION: No hydronephrosis or suspicious renal mass. Small cyst upper pole right kidney.
[2021-04-08 23:14] LABS: Urine Appearance CLEAR (Clear); Urine Bilirubin NEGATIVE (Negative); Urine Blood 2+ (Negative); Urine Color YELLOW (Yellow); Urine Glucose NEGATIVE (Negative); Urine Protein 1+ (Negative); Urine Urobilinogen 0.2 mg/dL (0.2-1.0)
[2021-04-08 23:18] LABS: Urine Microscopic Reflex ORDER UMIC
[2021-04-08 23:23] LABS: UR PROTEIN 76.6 mg/dL (<11.9); Urine Protein/Creatinine Ratio 0.63 ratio (<0.15)
[2021-04-08 23:44] LABS: Urine Bacteria <20 /HPF (NONE SEEN); Urine RBC <5 /HPF (NONE SEEN); Urine Urothelial Cells <5 /HPF (NONE SEEN)
[2021-04-09] MEDS ORDERED: HYDROCODONE/APAP 5/325 MG TAB PO ONE (00:40)
[2021-04-09 00:42] VITALS: BMI 33.4
[2021-04-09] MEDS: HEPARIN 5000 UNIT/ML 1 ML VIAL SQ SCH ×3 (00:49→17:00)
[2021-04-09] MEDS ORDERED: FENTANYL CITR 100 MCG/2 ML IV ONE (00:52)
[2021-04-09] MEDS ORDERED: FENTANYL CITR 100 MCG/2 ML ONE (01:03)
[2021-04-09] MEDS ORDERED: HEPARIN 5000 UNIT/ML 1 ML VIAL ONE ×2 (01:04→07:59)
[2021-04-09 02:37] LABS: Absolute Lymphocytes (CBC) 1.7 K/uL (0.7-4.9); Basophils % 0.6 % (0-1.3); Lymphocytes % 17.8 % (15.3-44.8); MPV 8.8 fL (7.6-11.3); RBC Red Blood Cell Count 4.16 M/uL (4.33-5.43)
[2021-04-09 02:54] LABS: Albumin 3.2 g/dL (3.4-5.0); Bilirubin Total 0.3 mg/dL (0.2-1.0); Magnesium 2.2 mg/dL (1.8-2.4); Phosphorus 3.4 mg/dL (2.5-4.9); Potassium 4.4 mmol/L (3.5-5.1); Protein, Total 6.4 g/dL (6.4-8.2)
[2021-04-09 04:17] VITALS: BP 95/60; TEMP 97.2
[2021-04-09] MEDS: NA CHLORIDE 0.9% 1,000 ML IV SCH ×2 (06:07→16:23)
[2021-04-09] MEDS ORDERED: NA CHLORIDE 0.9% 1,000 ML ONE ×2 (06:31→11:04)
[2021-04-09] MEDS ORDERED: ENOXAPARIN 40 MG/0.4 ML SQ SCH (09:00)
[2021-04-09 10:00] VITALS: O2SAT 96
[2021-04-09] MEDS ORDERED: NA CHLORIDE 0.9% 1,000 ML IV ONE (10:05)
--- NOTE | 2021-04-09 11:28 | EKG ---
Test Date: 2021-04-08 Test Time: 15:24:33 [place] Sinker: CONCHA MEASUREMENT RESULTS: Intervals: Rate: 103 NJ: 152 QRSD: 84 QT: 352 QTc: 461 Perry: P: 61 NJ: 152 QRS: 49 T: 51 INTERPRETIVE STATEMENTS: Sinus tachycardia Nonspecific T wave abnormality Abnormal ECG Compared to ECG 05/02/2012 16:22:40 T-wave abnormality now present Sinus rhythm no longer present Electronically Signed On 04-09-21 11:26:40 CDT by Cam Grace
[2021-04-09 12:24] LABS: Potassium 5.4 mmol/L (3.5-5.1)
[2021-04-09 12:25] LABS: Absolute Lymphocytes (CBC) 1.5 K/uL (0.7-4.9); Basophils % 0.6 % (0-1.3); Hematocrit 35.9 % (39.6-49.0); Lymphocytes % 21.3 % (15.3-44.8); MPV 8.8 fL (7.6-11.3); RBC Red Blood Cell Count 4.04 M/uL (4.33-5.43)
--- NOTE | 2021-04-09 14:32 | CON ---
Date of Consultation: 04/09/2021 Reason For Consultation: Elevated BUN and creatinine. History Of Present Illness: This is a pleasant 51-year-old gentleman with significant past medical h istory of hypertension. The patient was working outside, over the weekend the patient after that sta rted having dizziness spell and fall, came to the hospital. Upon arrival to the hospital, found to h ave low blood pressure, systolic down to 75 with elevation in CK and uric acid and creatinine 6.3. F or that reason, we have been consulted. Over the night, the patient was bolused with 2 L, started on aggressive hydration. Kidney function started to improve. The patient had good urine output. The patient was found to have COVID positive. The patient denied any nausea, any vomiting. Past Medical History: 1.Hypertension. 2.Hyperlipidemia. Past Surgical History: Include hernia repair. Home Medications: Include lisinopril. Family History: Positive for hypertension. Social History: Denies smoking. Occasional alcohol. Denied drugs abuse. Review of Systems: Head and Neck: No red eye. No ear pain. GI: No nausea, no vomiting. : No polyuria, no dysuria, no hematuria. Director Of Home Economics: Not applicable. Respiratory: Has cough. Cardiovascular: No chest pain. Endocrine: No polydipsia. Skin: No rash. Neuro: Generalized weakness, dizziness and fall. Musculoskeletal: No muscle cramps. Physical Examination: Vital Signs: When I saw the patient up on arrival, blood pressure systolic down to 75, currently blo od pressure 95/60, pulse of 108, afebrile. Chest: Clear to auscultation. Heart: S1, S2. Regular. Abdomen: Soft, morbidly obese. Could not appreciate any organomegaly. Extremities: No edema. Neurologic: Alert, oriented x3. No focal. Laboratory Data: WBC 7.2, H and H 12.1/35.9. Sodium 144, potassium 5.4, bicarb 25, BUN 42, creatinin e 1.4, GFR 52, calcium 7.9. Upon admission; creatinine 6.1, GFR of 10, CK 1000 currently 700. Calci um 7.9, albumin 3.2, corrected calcium 8.6. Current Medications: The patient on include Tylenol, IV fluid. Assessment And Plan: 1.Acute kidney injury secondary to rhabdomyolysis, prerenal, superimposed with KOLE inhibitor and poo r perfusion. Acute tubular necrosis secondary to blood pressure. The patient recovering very well. I am going to continue hydration. The patient cleared from the renal standpoint for discharge uma alberts. 2.Hyperkalemia, marginal. Keep holding KOLE inhibitor. The patient will follow up in the office in 2 weeks. 3.Hypertension, currently with low blood pressure. We are holding KOLE inhibitor and all other blood pressure medication, to follow up as outpatient. 4.Rhabdomyolysis secondary to heat exhaustion status post hydration, recovered and resolved. 5.COVID pneumonia as by primary. The patient cleared from the renal standpoint for discharge uma alberts. FLORINDA/BASSAM Voice ID: [id number] Report ID: [id number]
--- NOTE | 2021-04-09 17:04 | P.DS ---
Discharge Date: 04/09/21 Primary Care Provider: Senior Disposition: ROUTINE DISCHARGE Discharge Condition: GOOD Reason for Admission: rhabdomyolysis Brief History of Present Illness: Mr. Carrillo is a 51 yo M with HTN who presents with 4 days of increasing dizziness and weakness. He has been working outside in the heat extensively and has had multiple episodes of dizziness with standing. Today he bent down to pick something up and fainted. Did not hit his head. Says he has been drinking about 3-4 bottles of water a day. On arrival, BP 75/47 and heart rate 123. WBC 13.5, BUN 55, Cr 6.13, GFR 10, uric acid 13.6, CK 1071. COVID+, no symptoms, initially covid positive at the beginning of last month. Hospital Course: Patient is doing well. At this time, patient is stable for discharge home. Vital Signs/Physical Exam: Temp Pulse Resp BP Pulse Ox 97.2 F 108 H 17 95/60 94 04/09/21 04:00 04/09/21 04:00 04/09/21 04:00 04/09/21 04:00 04/09/21 04:00 General: Alert, In no apparent distress, Oriented x3 Laboratory Data at Discharge: WBC 7.20 K/uL (4.3-10.9) D 04/09/21 11:49 Hgb 12.1 g/dL (13.6-17.9) L 04/09/21 11:49 Hct 35.9 % (39.6-49.0) L 04/09/21 11:49 Plt Count 152 K/uL (152-406) 04/09/21 11:49 PT 11.6 SECONDS (9.5-12.5) 04/08/21 15:00 INR 1.01 04/08/21 15:00 Sodium 144 mmol/L (136-145) 04/09/21 11:49 Potassium 5.4 mmol/L (3.5-5.1) H 04/09/21 11:49 BUN 42 mg/dL (7-18) H 04/09/21 11:49 Creatinine 1.44 mg/dL (0.55-1.3) H D 04/09/21 11:49 Glucose 94 mg/dL (74-106) 04/09/21 11:49 Uric Acid 13.6 mg/dL (3.5-7.2) H 04/08/21 15:00 Phosphorus 3.4 mg/dL (2.5-4.9) 04/09/21 02:18 Magnesium 2.2 mg/dL (1.8-2.4) 04/09/21 02:18 Total Bilirubin 0.3 mg/dL (0.2-1.0) 04/09/21 02:18 AST 34 U/L (15-37) 04/09/21 02:18 ALT 34 U/L (12-78) 04/09/21 02:18 Alkaline Phosphatase 90 U/L (45-117) 04/09/21 02:18 Lipase 208 U/L (73-393) 04/08/21 15:00 Physician Discharge Instructions: OK TO DC IV AND DC HOME FOLLOW-UP WITH PRIMARY CARE PROVIDER IN 1-2 WEEKS FOLLOW-UP WITH Nephrology IN 1-2 WEEKS RETURN TO THE ER IF symptoms worsen CALL or TEXT DR. MENG AT [phone] IF ANY QUESTIONS REGARDING HOSPITAL STAY. PLEASE CALL THE FLOOR AT [phone] IF ANY MEDICATION OR NURSING QUESTIONS. Followup: Jeffrey Senior MD [Primary Care Provider] - Time spent managing pt's care (in minutes): 35
== END 2021-04-09 19:06 | disposition home or self-care (01) | DRG 682 ==
LOC: ER 13:39 → ERHOLD 19:42
PROVIDERS: ADMIT Hospitalist; ATTEND Hospitalist
DX: N17.0 Acute kidney failure with tubular necrosis (principal); U07.1 COVID-19; M62.82 Rhabdomyolysis; E87.5 Hyperkalemia; T67.5XXA Heat exhaustion, unspecified, initial encounter; I10 Essential (primary) hypertension; E66.01 Morbid (severe) obesity due to excess calories; Z68.33 Body mass index [BMI] 33.0-33.9, adult; I95.9 Hypotension, unspecified; E86.1 Hypovolemia
CPT/HCPCS: 36415; 71045; 74176; 76377; 76770; 80048; 80053; 80076; 81003; 81015; 82550; 82570; 83605; 83690; 83735; 83880; 84100; 84156; 84484; 84550; 85025; 85610; 87040; 87086; 87088; 93005; 94760; 99284; J1644; J3010; J7030; U0003